=== PATIENT | male | born 1935 | race Caucasian/White ===

== ENCOUNTER 2016-09-10 02:10 | Inpatient (IN) | payer OTHER ==
[~2016-09-10] VITALS: Ht 167.6 cm; Wt 81.6 kg
[~2016-09-10 02:10] MED LIST: ATENOLOL25 M1 PO; COZAAR100 M1 PO; LEVOTHYROXINE50 MCG PO; METFORMIN HCL1000 M1 PO; SIMVASTATIN10 M1 PO
[2016-09-10] MEDS ORDERED: PRILOSEC OTC20 M1 PO (16:06)
[2016-09-10] MEDS ORDERED: ASPIRIN EC325 M2 PO (16:07)
[2016-09-10] MEDS ORDERED: COLACE100 M1 PO (16:07)
[2016-09-10] MEDS ORDERED: MIRALAX17 G1 PO (16:07)
[2016-09-10] MEDS ORDERED: DILAUDID2 M1 PO (16:07)
[2016-09-10] MEDS ORDERED: MS CONTIN15 M2 PO (16:07)
--- NOTE | 2016-09-10 16:14 | Patient Discharge Instructions ---
Discharge Instructions General Discharge Information You were seen/treated for: LEFT KNEE PAIN RELATED TO OSTEOARTHRITIS You had these procedures: LEFT TOTAL KNEE REPLACEMENT Watch for these problems: Increasing pain despite the use of pain medication. Increasing redness, warmth, swelling. Drainage of any type from incision. Inability to bear weight on left leg. Persistent nausea and vomitting. Fever greater than 101.5 degrees. Do not soak the wound: Yes No bath, but you may shower: Yes Other wound care: Keep wound clean and dry. No ointments or lotions of any type on or near incision at any time. No exceptions. Dressing will be changed by staff on the second day after your surgery, daily dry dressing changes recommended thereafter. Special Instructions: Aspirin: This is to help protect you against the development of blood clots. Please take as directed. Take with food to prevent stomach upset. Constipation: Pain medications can be very constipating. Please take colace and miralax as directed to ensure you are able to move your bowels. Should your supply run out, these medications are available over the counter. You may stop taking these medications if you develop loose stool or diarrhea. If you are constipated and have not moved your bowels in several days or are unable to pass gas, please contact your doctor. Diet Continue normal diet: Yes Recommended Diet: Diabetic Additional DIET Information: advance as tolerated Activity Full Activity/No Limits: No Activity Self Limited: Yes Pounds, do NOT lift more than: 10 Activity Limited to: Weight bear as tolerated Acute Coronary Syndrome Inclusion Criteria At DC or during hospital stay patient has or had the following: ACS DIAGNOSIS No Discharge Core Measures Meds if any: Prescribed or Continued at Discharge Meds if any: NOT Prescribed or Continued at Discharge Congestive Heart Failure Inclusion Criteria At DC or during hospital stay patient has or had the following: CHF DIAGNOSIS No Discharge Core Measures Meds if any: Prescribed or Continued at Discharge Meds if any: NOT Prescribed or Continued at Discharge Cerebrovascular accident Inclusion Criteria At DC or during hospital stay patient has or had the following: CVA/TIA Diagnosis No Discharge Core Measures Meds if any: Prescribed or Continued at Discharge Meds if any: NOT Prescribed or Continued at Discharge Venous thromboembolism Inclusion Criteria VTE Diagnosis No VTE Type NONE VTE Confirmed by (Test) NONE Discharge Core Measures - Per Current guidelines, there needs to be overlap - treatment for the first 5 days of Warfarin therapy. - If discharged on Warfarin prior to 5 days of - overlap therapy, the patient will need to be - assessed for post discharge needs including - *Post discharge parental anticoagulation - *Warfarin and/or parental anticoagulation education - *Follow up date to check INR post discharge At least 5 days overlap therapy as Inpatient No Meds if any: Prescribed or Continued at Discharge Note: Overlap Therapy is Warfarin and Anticoagulant Meds if any: NOT Prescribed or Continued at Discharge
--- NOTE | 2016-09-10 16:15 | Admission Core Measures ---
Admission Meds I reviewed the following Meds: Current Medications Sig/Conchis Start time Last Medication Dose Stop Time Status Admin Acetaminophen 975 MG ONCE 09/10 0000 NR (Tylenol) 09/10 2358 Atenolol 25 MG DAILY 09/11 1000 UNVr (Tenormin) Atorvastatin Calcium 5 MG 1700 09/10 170 UNVr (Lipitor) Cefazolin Sodium 2,000 MG ONCE 09/10 0000 NR (Kefzol-Ancef Inj) 09/10 2358 Levothyroxine Sodium 0.05 MG DAILY 09/11 1000 UNVr (Synthroid) Losartan Potassium 100 MG DAILY 09/11 1000 UNVr (Cozaar) Metformin HCl 1,000 MG BID 09/10 2199 UNVr (Glucophage) Oxycodone HCl 10 MG ONCE 09/10 0000 NR (Roxicodone) 09/10 2358 Ropivacaine 500 ML ONCE ONE 09/10 1000 AC (NAROPIN) 09/12 1159 ON-Q Ball 1 BAG Acute Coronary Syndrome Inclusion Criteria ACS Diagnosis No Inpatient Core Measures LDL Reminder: If No, please order W/I first 24hr of stay Congestive Heart Failure Inclusion Criteria CHF Diagnosis No Cerebrovascular accident Inclusion Criteria CVA/TIA Diagnosis No Inpatient Core Measures Bedside Swallow Eval Reminder: If BSE failed, place ST order Antithrombotic Reminder: Order Antithrombotic Medication by end of day 2 Antithrombotic Reminder: Document Reason Antithrombotic Not ordered by end of day 2 AFIB/Flutter Reminder: If Present, add to problem list AFIB/Flutter Reminder: Order Anticoag Medication for pts with AFIB/Flutter Atherosclerosis Reminder: If Present, add to problem list LDL Reminder: If No, please order W/I first 24hr of stay PT Order Reminder: If No, please order Venous thromboembolism Inpatient Core Measures VTE Risk Factors: Age > 40, Surgery No [facility] VTE prophylaxis d/t No contraindications No VTE Pharm Prophylaxis d/t No contraindications Inclusion Criteria - Per Current guidelines, there needs to be overlap - treatment for the first 5 days of Warfarin therapy. - Parenteral Anticoagulation (IV or SC) needs to be - given along with Warfarin therapy. VTE Diagnosis No VTE Type NONE VTE Confirmed by (Test) NONE Problem List As ranked by this Provider includes Assessment & Plan 1. Unilateral primary osteoarthritis, left knee HOME MEDS Home Med List Aspirin (Ecotrin*) 325 MG TABLET.DR 1 TAB PO BID ANTICOAGULATION Atenolol 25 MG TABLET 1 TAB PO DAILY HTN (Reported) Docusate Sodium (Colace) 100 MG CAPSULE 1 CAP PO BID CONSITPATION Hydromorphone HCl (Dilaudid) 2 MG TABLET 1-2 TAB PO Q4-6 PRN PAIN Levothyroxine Sodium 50 MCG TABLET 1 TAB PO DAILY HYPOTHYROID (Reported) Losartan (Cozaar) 100 MG TABLET 1 TAB PO DAILY HTN (Reported) Metformin HCl 1,000 MG TABLET 1 TAB PO BID DM II (Reported) Morphine Sulfate (Ms Contin) 15 MG TABLET.ER 1 TAB PO BID PAIN Polyethylene Glycol 3350 (Miralax) 17 GRAM POWD.PACK 1 PAC PO DAILY CONSTIPATION Simvastatin (Simvastatin*) 10 MG TABLET 1 TAB PO QPM CHOLESTEROL (Reported)
--- NOTE | 2016-09-10 16:19 | Surgical Discharge Summary ---
Visit Information Visit Dates Admission Date: 09/10/16 Discharge Date: 09/12/16 History of Present Illness Chief Complaint: Left knee pain related to unilateral primary osteoarthritis Surgical History Pertinent Surgical History: non-contributory Review of Systems: See H&P Hospital Course Course Attending Physician: NINA PERDOMO MD Primary Care Physician: FRANKLIN SCHMITZ,[facility] Course: Jerry was admitted to the hospital on 09/10/2016 for an elective left total hip replacement. He tolerated the procedure well and was transferred to a general surgical floor. His diet was advanced and tolerated and he was able to void spontaneoulsy. He was evaluated and treated by physical therapy. At the time of hospital discharge, his vital signs were stable and within normal limits, his neurovascular status was intact, and his pain was controlled with the use of oral pain medications. Allergies: Coded Allergies: No Known Allergies (09/04/16) Disposition Summary Disposition Principal Diagnosis: Left knee unilateral primary osteoarthritis Additional Diagnosis: none Discharge Disposition: home health services Discharge Instructions General Discharge Information Code Status: Full Code Patient's Diet: Diabetic, advance as tolerated Patient's Activity: wbat Follow-Up Instructions/Appts: Follow up with Dr. Perdomo in 6 weeks from date of surgery. Please call his office to arrange and/or confirm this appointment. Medications at Discharge Discharge Medications: Continue taking these medications: Metformin HCl (Metformin HCl) 1,000 MG TABLET 1 Tablet ORAL TWICE DAILY Comments: Last Taken:09/12/16 Time:0800 Losartan (Cozaar) 100 MG TABLET 1 Tablet ORAL DAILY Comments: Last Taken:09/12/16 Time:0800 Atenolol (Atenolol) 25 MG TABLET 1 Tablet ORAL DAILY Comments: Last Taken:09/12/16 Time:0800 Simvastatin (Simvastatin*) 10 MG TABLET 1 Tablet ORAL Every night Comments: Last Taken:ATORVASTATIN GIVEN Time:09/11/16 @ 5PM Levothyroxine Sodium (Levothyroxine Sodium) 50 MCG TABLET 1 Tablet ORAL DAILY Comments: Last Taken:09/12/16 Time:0600 Start taking the following new medications: Aspirin (Ecotrin*) 325 MG TABLET. 1 Tablet ORAL TWICE DAILY Qty = 60 No Refills Comments: Last Taken:09/12/16 Time:0800 Docusate Sodium (Colace) 100 MG CAPSULE 1 Capsule ORAL TWICE DAILY Qty = 14 No Refills Instructions: DISCONTINUE USE IF YOU DEVELOP LOOSE STOOL OR DIARRHEA Comments: Last Taken:09/12/16 Time:8 AM Polyethylene Glycol 3350 (Miralax) 17 GRAM POWD.PACK 1 Packet ORAL DAILY Qty = 7 No Refills Instructions: dissolve in water, DISCONTINUE USE IF YOU DEVELOP LOOSE STOOL OR DIARRHEA Comments: Last Taken:09/12/16 Time:8AM Morphine Sulfate (Ms Contin) 15 MG TABLET.ER 1 Tablet ORAL TWICE DAILY Qty = 4 No Refills Comments: Last Taken:09/11/16 Time:3PM Hydromorphone HCl (Dilaudid) 2 MG TABLET 1-2 Tablet ORAL EVERY 4-6 HOURS as needed for PAIN Qty = 36 No Refills Comments: Last Taken:09/10/16 Time:8PM Omeprazole Magnesium (Prilosec Otc) 20 MG TABLET.DR 1 Tablet ORAL DAILY Qty = 30 No Refills
--- NOTE | 2016-09-10 16:32 | Operative Report ---
Operative/Inv Procedure Report Surgery Date: 09/10/16 Name of Procedure: Left total knee replacement Pre-Operative Diagnosis: Primary left knee DJD Post-Operative Diagnosis: Same Estimated Blood Loss: 50ml to 100ml Surgeon/Varnish Cooker: LEANNE SCHMITZ,NINA Dumont Anesthesia: block Operative/Procedure Note Note: Description of Procedure: The patient was taken to the operating room and positively identified. After induction of spinal anesthesia and administration of appropriate pre-operative antibiotics, the patient was positioned supine on the operating room table and all bony prominences were well padded. A well-padded pneumatic tourniquet was placed on the left upper thigh. After performing a surgical timeout, the left lower extremity was prepped and draped in the usual sterile fashion. After exsanguination with Esmarch the tourniquet was inflated to 250mm of mercury. A standard medial parapatellar approach was made to the knee. This was carried down through skin and subcutaneous tissue to the level of the fascia. Meticulous hemostasis was maintained with Bovie electrocautery. The extensor mechanism and patellar retinaculum were opened sharply and the patella was everted. The infrapatellar fat was resected in order to improve exposure. Osteophytes were trimmed from the patella and femoral condyles and the patella was re-everted and tucked laterally. A medial release was performed and the cruciate ligaments were resected. The tibia was then subluxed anteriorly. Utilizing the appropriate extra-medullary guide, the proximal tibia was trimmed perpendicular to the long axis of the tibial shaft. Attention was then turned to the femur. After opening the medullary canal, the distal femoral cut was made in 6 degrees of valgus utilizing the appropriate intra-medullary guide. The extension gap was checked and found to be appropriate. The femur was then sized and the remainder of the femoral cuts were made with a size 3 4-in-1 femoral cutting guide. The flexion gap was checked and found to be symmetric and appropriate. The knee was then trialed with a size 3 femoral component, a size 4 tibial component and a size 13 mm polyethylene insert. The patella was trimmed to accept an A 35 patella. This yielded excellent range of motion, stability and patellar tracking. All trial components were removed and the knee was copiously irrigated with sterile saline. All components were cemented into place with [place] [employer]plex cement. All the components were of the Leslee Triathlon knee system of the above stated sizes. The knee was again irrigated after cementation. The extensor mechanism and patellar retinaculum were repaired using interrupted #1 vicryl suture. The skin was re-approximated with 2-0 vicryl and closed with consuelo. A sterile dressing was applied, the tourniquet was deflated, the patient was awakened and taken to the recovery room in satisfactory condition.
[2016-09-10 19:46] VITALS: BP 110/60
--- NOTE | 2016-09-10 19:59 | NUR ---
PT ARRIVED TO FLOOR VIA STRETCHER, AO, +MOVEMENT BUT REPORTED DECREASED SENSATION TO LLE, 3L NC, HAS NOT YET VOIDED OR AMBULATED, NO C/O PAIN, VSS, BELONGINGS PLACED IN CABINETS, ORIENTED TO ROOM AND CALL LIGHT, AT BEDSIDE, WILL CONTINUE TO MONITOR.
[2016-09-10 22:07] VITALS: BP 134/62
[2016-09-11] VITALS (8 sets, daily range): BP systolic 100–144; BP diastolic 60–76
--- NOTE | 2016-09-11 06:35 | NUR ---
PATIENT HAS NOT VOIDED THROUGHOUT SHIFT. AT APPROX 0400, THIS RN ASKED PATIENT TO TRY AND VOID IN THE URINAL. PT WAS ASSISTED TO EDGE OF BED AND VOIDED ONLY 100 ML. PT STATES HE TYPICALLY ONLY VOIDS A LITTLE AMOUNT AT A TIME R/T HIS BPH. AT 0600 THIS RN REQUESTED PATIENT TRY TO VOID AGAIN. PT WAS UNABLE TO VOID. PT WAS BLADDER SCANNED FOR APPROX 350-530 ML OF URINE. AT THIS TIME, PATIENT DOES NOT WANT ANY CATHETERIZATION AND WANTS MORE TIME TO VOID ON HIS OWN. PT STATES "I KNOW I CAN GO WITH JUST A LITTLE MORE TIME." WILL CONTINUE TO CLOSELY MONITOR.
[2016-09-11 08:02] LABS: ABSOLUTE BASOPHIL COUNT 0 /CUMM (0.0-0.2); ABSOLUTE EOSINOPHIL COUNT 0 /CUMM (0.0-0.7); ABSOLUTE GRANULOCYTE CT 8.4 /CUMM (1.4-6.5); ABSOLUTE LYMPH COUNT 0.9 /CUMM (1.2-3.4); ABSOLUTE MONOCYTE COUNT 0.7 /CUMM (0.10-0.60); BASOPHIL % 0.1 % (0.0-2.0); EOSINOPHIL % 0.2 % (0-5); HEMATOCRIT 37.4 % (42-52); MEAN CORPUSCULAR HGB 31.5 PG (27.0-31.0); MEAN CORPUSCULAR HGB CONC 33.8 G/DL (33.0-37.0); MEAN CORPUSCULAR VOLUME 93.3 FL (80.0-94.0); MEAN PLATELET VOLUME 8.6 FL (7.4-10.4); PLATELET COUNT 176 /CUMM (130-400); RBC DISTRIBUTION WIDTH 12.7 % (11.5-14.5); RED BLOOD CELL CT 4.01 /CUMM (4.70-6.10); WHITE BLOOD CELL COUNT 10.1 /CUMM (4.8-10.8)
[2016-09-11 09:30] LABS: GRANULOCYTE % 83.5 % (42.2-75.2)
--- NOTE | 2016-09-11 10:25 | PN- Orthopedic ---
Subjective Subjective: Patient had severe pain overnight that was controlled with IV Dilaudid. He is having decreased urinary stream, has history of BPH, has never been on medications for this and never needed catheterization. He denies any fever or flulike illness. His pain is in the posterior and lateral aspect of the left knee. Objective Vital Signs and I&Os Vital Signs Date Time Temp Pulse Resp B/P B/P Pulse O2 O2 Flow FiO2 Mean Ox Delivery Rate 09/11 1136 Room Air Room Air 09/11 1129 98.8 84 20 100/60 93 Room Air 09/11 0815 75 138/70 09/11 0815 75 138/70 09/11 0800 93 Room Air 09/11 0600 98.2 75 20 138/70 96 Nasal Cannula 09/11 0217 98.9 67 20 144/76 96 Nasal Cannula 09/11 0000 Nasal 3.0L Cannula 09/11 0000 98.7 63 20 118/70 96 Nasal Cannula 09/10 2207 97.9 70 20 134/62 98 Nasal 3.0L Cannula 09/10 194 96 Nasal 3.0L Cannula 09/10 194 94.7 66 20 110/60 97 Nasal Cannula Intake & Output 09/11 1600 09/11 0800 09/11 0000 09/10 1600 09/10 0800 09/10 0000 Intake Total 1080 660 Output Total 400 100 Balance -400 980 660 Intake, IV 600 300 Intake, Oral 480 360 Output, Urine 400 100 Patient 180 lb Weight Weight Reported by Patient Measurement Method Physical Exam: Well-developed well-nourished no apparent distress. HEENT: Atraumatic, extraocular motion intact Neck: Supple, no lymphadenopathy Respiratory: No respiratory distress Extremities: No edema LEFT lower extremity dressing in place, Range of motion is 0-50. Compression wrap in place. ALPS in place Neurovascularly intact distally Bilateral calves are supple, nontender. Neuro: Alert and oriented x3 Psych: Mood affect normal, normal memory normal judgment. Skin: Warm and dry, no rash on exposed skin Results Last 48 Hours of Labs: Laboratory Tests 09/11 614 Chemistry Sodium (137 - 145 mmol/L) 135 L Potassium (3.5 - 5.1 mmol/L) 4.7 Chloride (98 - 107 mmol/L) 98 Carbon Dioxide (22 - 30 mmol/L) 25 Anion Gap (5 - 16) 13 BUN (9 - 20 mg/dL) 18 Creatinine (0.7 - 1.2 mg/dL) 1.1 Estimated GFR (>60 ml/min) > 60 BUN/Creatinine Ratio (7 - 25 %) 16.4 Hematology CBC w Diff NO MAN DIFF REQ WBC (4.8 - 10.8 /CUMM) 10.1 RBC (4.70 - 6.10 /CUMM) 4.01 L Hgb (14.0 - 18.0 G/DL) 12.6 L Hct (42 - 52 %) 37.4 L MCV (80.0 - 94.0 FL) 93.3 MCH (27.0 - 31.0 PG) 31.5 H RDW (11.5 - 14.5 %) 12.7 Plt Count (130 - 400 /CUMM) 176 MPV (7.4 - 10.4 FL) 8.6 Gran % (42.2 - 75.2 %) 83.5 H Lymphocytes % (20.5 - 51.1 %) 8.9 L Monocytes % (1.7 - 9.3 %) 7.3 Eosinophils % (0 - 5 %) 0.2 Basophils % (0.0 - 2.0 %) 0.1 Absolute Granulocytes (1.4 - 6.5 /CUMM) 8.4 H Absolute Lymphocytes (1.2 - 3.4 /CUMM) 0.9 L Absolute Monocytes (0.10 - 0.60 /CUMM) 0.7 H Absolute Eosinophils (0.0 - 0.7 /CUMM) 0 Absolute Basophils (0.0 - 0.2 /CUMM) 0 PUBS MCHC (33.0 - 37.0 G/DL) 33.8 Assessment/Plan Assessment/Plan POD #1 SP L TKA mild urinary retention from hx of BPH, currently voiding, consider flomax if sx worsen. Continue aspirin for DVT prophylaxis Pain medication as needed, continue on Q Perioperative antibiotics DC IV fluids as patient is tolerating adequate by mouth Dressing change tomorrow Physical therapy, out of bed, weightbearing as tolerated, activity as tolerated Labs stable this morning Core Measures/Miscellaneous Venous Thromboembolism VTE Risk Factors: Age > 40, Surgery VTE Contraindications: No Contraindications VTE Diagnosis: No VTE Type: NONE VTE Confirmed by (Test): NONE Beta Jignesh Is Beta Jignesh a Home Med? No Antibiotics Is Patient on Antibiotics? Yes If Yes: prophylaxis
--- NOTE | 2016-09-11 21:30 | NUR ---
PT TOLD RN THAT EARLIER TODAY HE ATTEMPTED TO AMBULATE TO THE BATHROOM BY HIMSELF USING THE BEDSIDE TABLE FOR SUPPORT. MADE IT TO THE BATHROOM AND BACK INDEPENDENTLY WITHOUT FALLING. PT WAS EDUCATED ABOUT IMPORTANCE OF CALL MERCADO USE AND EFFECTS OF ON Q PUMP. PT AGREED TO USE THE CALL MERCADO FROM NOW ON AND WALKER WAS PLACED IN PTS ROOM.
[2016-09-12 06:50] VITALS: BP 120/60
[2016-09-12 07:44] VITALS: BP 124/68
--- NOTE | 2016-09-12 08:16 | PN- Orthopedic ---
Subjective Subjective: pod#2 s/p left tka no major complaints deneis cp, sob, no n+v with diet ambulating well with pt tolerating diet toileting independently Objective Vital Signs and I&Os Vital Signs Date Time Temp Pulse Resp B/P B/P Pulse O2 O2 Flow FiO2 Mean Ox Delivery Rate 06/02 0744 124/68 06/02 0744 124/68 06/02 0650 97.5 80 20 120/60 93 Room Air 06/01 2240 97.3 83 20 112/62 95 Room Air 06/01 1800 97.3 79 20 118/60 91 Room Air 06/01 1600 90 06/01 1427 97.7 78 20 130/70 90 Room Air 06/01 1136 Room Air Room Air 06/ 1129 98.8 84 20 100/60 93 Room Air 06/01 0815 75 138/70 06/01 0815 75 138/70 Intake & Output 06/02 1600 06/02 0800 06/02 0000 06/01 1600 06/ 0800 06/01 0000 Intake Total 250 40 585 1080 660 Output Total 500 100 500 100 Balance -250 -60 85 980 660 Intake, IV 10 30 225 600 300 Intake, Oral 240 10 360 480 360 Number 0 0 Bowel Movements Output, Urine 500 100 500 100 Patient 180 lb Weight Weight Reported by Patient Measurement Method Physical Exam: cv: rrr lungs: clear abd: soft, +bs ext: drsg changed wound c/d/i no calf tenderness distal cms intact Assessment/Plan Assessment/Plan ortho stable plan cont oob with pt asa for dvt prophylsxis home d/c later today Core Measures/Miscellaneous Venous Thromboembolism VTE Risk Factors: Age > 40, Surgery VTE Contraindications: No Contraindications VTE Diagnosis: No VTE Type: NONE VTE Confirmed by (Test): NONE Beta Jignesh Is Beta Jignesh a Home Med? No Antibiotics Is Patient on Antibiotics? Yes If Yes: prophylaxis
== END 2016-09-12 11:45 | disposition home health service (06) | DRG 470 ==
LOC: SDA 02:10 → 2NA 02:10 → ENRESERV 17:03 → 2NA 18:19 → ENPENDDIS 09-12 08:21 → 2NA 09-12 11:45
PROVIDERS: Nurse Practitioner; ADMIT Orthopaedic Surgery
PROC: 0SRD0J9 Replacement of Left Knee Joint with Synthetic Substitute, Cemented, Open Approach (ICD-10-PCS; principal; 2016-09-10)
PROC: 3E0T3CZ (ICD-10-PCS; 2016-09-10)
DX: M17.12 Unilateral primary osteoarthritis, left knee (principal); E11.9 Type 2 diabetes mellitus without complications; I10 Essential (primary) hypertension; N40.0 Benign prostatic hyperplasia without lower urinary tract symptoms; I25.10 Atherosclerotic heart disease of native coronary artery without angina pectoris; E03.9 Hypothyroidism, unspecified; M10.9 Gout, unspecified; Z95.5 Presence of coronary angioplasty implant and graft; Z79.84 Long term (current) use of oral hypoglycemic drugs
CPT/HCPCS: 2NASP; 36415; 82436; 88305; 97110-GO; 97116-GO; 97161-GP; 97530-GO; C1713; J0131; J0690; J2405; J2550; J2795; J3490; J7042